=== PATIENT | male | born 1980 | race Caucasian/White ===

== ENCOUNTER → 2019-12-21 13:49 | Outpatient (BNVA) | payer OTHER, SELFPAY | PROVIDERS: Visit Provider Physician Assistant Medical | DX: S63.501A Unspecified sprain of right wrist, initial encounter (principal); S66.911A Strain of unspecified muscle, fascia and tendon at wrist and hand level, right hand, initial encounter; X58.XXXA Exposure to other specified factors, initial encounter; M65.4 Radial styloid tenosynovitis [de Quervain] | CPT/HCPCS: 29125; 99202 ==

== ENCOUNTER → 2020-01-02 15:06 | Outpatient (BNVA) | payer OTHER, SELFPAY | PROVIDERS: Visit Provider Physician Assistant Medical | DX: S63.501D Unspecified sprain of right wrist, subsequent encounter (principal); S66.811D Strain of other specified muscles, fascia and tendons at wrist and hand level, right hand, subsequent encounter; X58.XXXD Exposure to other specified factors, subsequent encounter; M65.4 Radial styloid tenosynovitis [de Quervain] | CPT/HCPCS: 99213 ==

== ENCOUNTER → 2020-01-16 15:23 | Outpatient (BNVA) | payer OTHER, SELFPAY | PROVIDERS: Visit Provider Physician Assistant Medical | DX: S63.501A Unspecified sprain of right wrist, initial encounter (principal); S56.811A Strain of other muscles, fascia and tendons at forearm level, right arm, initial encounter; X50.0XXA Overexertion from strenuous movement or load, initial encounter; X50.1XXA Overexertion from prolonged static or awkward postures, initial encounter; M65.4 Radial styloid tenosynovitis [de Quervain] | CPT/HCPCS: 99213 ==